=== PATIENT | female | born 2000 | race Two or more races ===

== ENCOUNTER 2025-05-29 10:00 | Observation (INO) | payer MEDICAID ==
[2025-05-29] MEDS ORDERED: PREN-96 PO (11:19)
--- NOTE | 2025-05-29 12:11 | DVHDS2 ---
Physician Discharge Progress N Final Diagnosis: gdm 32wks Operations or Procedures: Operations or Procedures nst reactive reviwed,sono Condition on Discharge: Good Disposition: Home Discharge Instructions: Diet: Consistent carbohydrate Activity: No Restrictions, As Tolerated Follow Up/Referral: as scheduled. Medications: na Follow Up Care: Specialist: 1w Discharge Statement: "Patient was advised to return to the ER or call 911 if any headaches, dizziness, shortness of breath, chest pain, abdominal pain, bleeding, fevers, or worsening of medical condition. Patient was counseled about treatment plan, medications, possible side effects, patientverbalized understanding. All questions were answered to the best of my ability. This discharge took greater then 30 minutes in planning, reviewing documentation, counseling the patient, and discussing with other team members." Visit Coding OBGYN Date of Service: May 29, 2025 Billing Provider: HORACE ELIAS DO [facility] SOLUTION ARCHITECT Common Visit Codes: 49751-CBESVPC OBS CARE (HIGH) [facility]DC SOLUTION ARCHITECT Procedure Codes: 32661-65- NON-STRESS TEST HORACE ELIAS DO May 29, 2025 12:11
--- NOTE | 2025-05-29 12:44 | DVH ---
BIOPHYSICAL PROFILE HISTORY: GDMA1 TECHNIQUE: Multiple real-time grayscale sonographic images through the gravid uterus of the fetus wi th duplex Doppler color flow. FINDINGS: BIOPHYSICAL PROFILE: breathing score: 2 movement score: 2 tone score: 2 Quantitative CLARIBEL score: 2 Total score: 8 out of 8 Single live intrauterine , heart rate of 132 beats per minute. Cephalic lie. Placenta is posteriorly/ fundally positioned. CLARIBEL 18.1 cm. IMPRESSION: Biophysical profile score: 8 out of 8
== END 2025-05-29 12:05 | disposition home or self-care (01) ==
LOC: UNDOADMOB 10:00 → LDRP 10:00 → EDBD 10:00 → LDRP 10:44
PROVIDERS: ADMIT Obstetrics & Gynecology; ATTEND Obstetrics & Gynecology
DX: O24.419 Gestational diabetes mellitus in pregnancy, unspecified control (principal); Z3A.32 32 weeks gestation of pregnancy; Z79.899 Other long term (current) drug therapy
CPT/HCPCS: 59025; 76819; 81002; 82948; 82962; 94760; G0378

== ENCOUNTER 2025-06-04 08:19 | Observation (INO) | payer MEDICAID ==
[~2025-06-04 08:19] MED LIST: PREN-96 PO
--- NOTE | 2025-06-12 16:48 | DVH ---
BIOPHYSICAL PROFILE HISTORY: GDMA1 TECHNIQUE: Multiple transabdominal real-time grayscale sonographic images through the gravid uterus of the fetus with duplex Doppler color flow and M-mode spectral analysis FINDINGS: BIOPHYSICAL PROFILE: breathing score: 2/2 movement score: 2 of 2 tone score: 2 of 2 Quantitative CLARIBEL score: 2 of 2 (CLARIBEL: 17 Cm.) Total score: 8 of 8 The cervix close Single live fetus in cephalic presentation. heart rate 143 beats per minute. Posterior placenta without previa or abruption IMPRESSION: 1. Biophysical profile score: 8 of 8
--- NOTE | 2025-06-13 13:47 | DVHDS2 ---
Physician Discharge Progress N Final Diagnosis: iup at 38wks gdm Operations or Procedures: Operations or Procedures nst reactive reviwed,sono Condition on Discharge: Good Disposition: Home Discharge Instructions: Diet: Consistent carbohydrate Activity: No Restrictions, As Tolerated Medications: na Follow Up Care: Specialist: 3d Discharge Statement: "Patient was advised to return to the ER or call 911 if any headaches, dizziness, shortness of breath, chest pain, abdominal pain, bleeding, fevers, or worsening of medical condition. Patient was counseled about treatment plan, medications, possible side effects, patientverbalized understanding. All questions were answered to the best of my ability. This discharge took greater then 30 minutes in planning, reviewing documentation, counseling the patient, and discussing with other team members." Visit Coding OBGYN Date of Service: Jun 12, 2025 Billing Provider: HORACE ELIAS DO ION EXCHANGE OPERATOR Common Visit Codes: [id number] OBS CARE (HIGH) ION EXCHANGE OPERATOR Procedure Codes: 09880-31- NON-STRESS TEST HORACE ELIAS DO Jun 13, 2025 13:47
== END 2025-06-12 17:15 | disposition home or self-care (01) ==
LOC: UNDOADMOB 06-12 15:48 → LDRP 06-12 15:48 → UNDODISOB 06-12 17:15
PROVIDERS: ADMIT Obstetrics & Gynecology; ATTEND Obstetrics & Gynecology
DX: O24.419 Gestational diabetes mellitus in pregnancy, unspecified control (principal); Z98.890 Other specified postprocedural states; Z79.899 Other long term (current) drug therapy; Z3A.38 38 weeks gestation of pregnancy
CPT/HCPCS: 59025; 76819; 81002; 82948; 82962; G0378

== ENCOUNTER 2025-06-19 16:05 | Observation (INO) | payer MEDICAID ==
--- NOTE | 2025-06-19 16:47 | DVH ---
BIOPHYSICAL PROFILE HISTORY: GDMA1 TECHNIQUE: Multiple real-time grayscale sonographic images through the gravid uterus of the fetus wi th duplex Doppler color flow. FINDINGS: BIOPHYSICAL PROFILE: breathing score: 2 movement score: 2 tone score: 2 Quantitative CLARIBEL score: 2 Total score: 8 out of 8 Single live intrauterine . heart rate 138 beats per minute. Cephalic lie. Placenta posteriorly positioned. CLARIBEL 16.6 cm. IMPRESSION: Biophysical profile score: 8 out of 8
--- NOTE | 2025-06-19 17:04 | DVHDS2 ---
Physician Discharge Progress N Final Diagnosis: GDM,PREVIOUS CSX2 Operations or Procedures: Operations or Procedures NST REACTIVE REVIWED,SONO Condition on Discharge: Good Disposition: Eloped Discharge Instructions: Diet: Consistent carbohydrate Activity: No Restrictions, As Tolerated Medications: NA Follow Up Care: Specialist: 4D Discharge Statement: "Patient was advised to return to the ER or call 911 if any headaches, dizziness, shortness of breath, chest pain, abdominal pain, bleeding, fevers, or worsening of medical condition. Patient was counseled about treatment plan, medications, possible side effects, patientverbalized understanding. All questions were answered to the best of my ability. This discharge took greater then 30 minutes in planning, reviewing documentation, counseling the patient, and discussing with other team members." Visit Coding OBGYN Date of Service: Jun 19, 2025 Billing Provider: HORACE ELIAS DO PURCHASING ASSISTANT Common Visit Codes: 42698-BIQHDEV OBS CARE (HIGH) PURCHASING ASSISTANT Procedure Codes: 24994-77- NON-STRESS TEST HORACE ELIAS DO Jun 19, 2025 17:04
== END 2025-06-19 17:17 | disposition home or self-care (01) ==
LOC: LDRP 16:05
PROVIDERS: ADMIT Obstetrics & Gynecology; ATTEND Obstetrics & Gynecology
DX: O24.419 Gestational diabetes mellitus in pregnancy, unspecified control (principal); Z3A.36 36 weeks gestation of pregnancy; Z98.890 Other specified postprocedural states; Z79.899 Other long term (current) drug therapy
CPT/HCPCS: 59025; 76819; 81002; 82948; 82962; 94760; G0378

== ENCOUNTER 2025-06-26 16:05 | Observation (INO) | payer MEDICAID ==
--- NOTE | 2025-06-26 16:52 | DVH ---
BIOPHYSICAL PROFILE HISTORY: GDMA1 TECHNIQUE: Multiple real-time grayscale sonographic images through the gravid uterus of the fetus wi th duplex Doppler color flow. FINDINGS: BIOPHYSICAL PROFILE: breathing score: 2 movement score: 2 tone score: 2 Quantitative CLARIBEL score: 2 Total score: 8 out of 8 The cervix 4.55 Single live intrauterine . heart rate 132 beats per minute. Cephalic lie. Placenta posteriorly positioned. CLARIBEL 15.4 cm. IMPRESSION: Biophysical profile score: 8 out of 8
--- NOTE | 2025-06-27 14:33 | DVHDS2 ---
Physician Discharge Progress N Final Diagnosis: gdm 37wks Operations or Procedures: Operations or Procedures nst reactive reviwed,sono Condition on Discharge: Good Disposition: Home Discharge Instructions: Diet: Consistent carbohydrate Activity: No Restrictions, As Tolerated Medications: na Follow Up Care: Specialist: 3d Discharge Statement: "Patient was advised to return to the ER or call 911 if any headaches, dizziness, shortness of breath, chest pain, abdominal pain, bleeding, fevers, or worsening of medical condition. Patient was counseled about treatment plan, medications, possible side effects, patientverbalized understanding. All questions were answered to the best of my ability. This discharge took greater then 30 minutes in planning, reviewing documentation, counseling the patient, and discussing with other team members." Visit Coding OBGYN Date of Service: Jun 26, 2025 Billing Provider: HORACE ELIAS DO PHLEBOTOMY SUPPORT TECH Common Visit Codes: [id number] OBS CARE (HIGH) PHLEBOTOMY SUPPORT TECH Procedure Codes: 60075-50- NON-STRESS TEST HORACE ELIAS DO Jun 27, 2025 14:33
== END 2025-06-26 17:18 | disposition home or self-care (01) ==
LOC: LDRP 16:05 → UNDOADMOB 16:05 → LDRP 16:11
PROVIDERS: ADMIT Obstetrics & Gynecology; ATTEND Obstetrics & Gynecology
DX: O24.419 Gestational diabetes mellitus in pregnancy, unspecified control (principal); Z3A.37 37 weeks gestation of pregnancy; Z98.890 Other specified postprocedural states
CPT/HCPCS: 59025; 76819; 81002; 82948; 82962; 94760; G0378

== ENCOUNTER 2025-07-03 06:40 | Observation (INO) | payer MEDICAID ==
--- NOTE | 2025-07-03 16:48 | DVH ---
EXAM: US BIOPHYSICAL PROFILE HISTORY: GDMA1 COMPARISON: US BIOPHYSICAL PROFILE on DOS: 06/26/25, US BIOPHYSICAL PROFILE on DOS: 06/19/25, US BIOPHY SICAL PROFILE on DOS: 06/12/25 TECHNIQUE: Multiple transabdominal real-time grayscale sonographic images through the gravid uterus of the fetus with duplex Doppler color flow and M-mode spectral analysis Findings/Impression: Single live intrauterine in vertex presentation with heart rate of 141 bpm. Biophysical profile was performed with 2 points for respirations, 2 points for movement, 2 points for tone and 2 points for amniotic fluid index. Biophysical profile score of 8/8. Amniotic fluid is within normal limits with CLARIBEL 11.2 cm and MVP 4.3 cm. Normal CLARIBEL (5-25 cm) Normal MVP (2-8 cm)
== END 2025-07-03 17:08 | disposition home or self-care (01) ==
LOC: LDRP 16:02 → UNDOADMOB 16:02 → LDRP 16:08 → UNDODISOB 17:08
PROVIDERS: ADMIT Obstetrics & Gynecology; ATTEND Obstetrics & Gynecology
DX: O24.419 Gestational diabetes mellitus in pregnancy, unspecified control (principal); Z3A.38 38 weeks gestation of pregnancy; Z79.899 Other long term (current) drug therapy; Z98.890 Other specified postprocedural states
CPT/HCPCS: 59025; 76819; 81002; 82948; 82962; 94760; G0378

== ENCOUNTER 2025-07-07 06:28 | Observation (INO) | payer MEDICAID ==
--- NOTE | 2025-07-07 14:06 | DVH ---
BIOPHYSICAL PROFILE HISTORY: gdma1 TECHNIQUE: Multiple transabdominal real-time grayscale sonographic images through the gravid uterus o f the fetus with duplex doppler color flow and M-mode spectral analysis FINDINGS: BIOPHYSICAL PROFILE: breathing score: 2 movement score: 2 tone score: 2 Quantitative CLARIBEL score: 2 (CLARIBEL: 10.1 cm.) Total score: 8/8 Single live fetus in cephalic presentation. heart rate 141 beats per minute. Posterior placenta without previa or abruption Biophysical profile score 8/8 corresponding to an RUPAL of 07/16/25 IMPRESSION: Biophysical profile score: 8/8 Possible nuchal cord seen.
--- NOTE | 2025-07-07 17:43 | DVHDS2 ---
Discharge Summary Date of Admission Jul 07, 2025 at 13:03 Date of Discharge: Jul 07, 2025 Labs/Diagnostic Data: Laboratory Results Test 07/07/25 14:22 POC Glucose 82 mg/dl (70-106) Brief Hx & Hospital Course: Patient having routine monitoring with NST BPP Consults/Reason for consult None Condition at Discharge: Good Final Diagnosis/Problems List Thirty weeks GDM A1 reassuring heart tones and ultrasound. Discharge Disposition: Home Discharge Instruct/Medications Diet: Regular Activity: No Restrictions, As Tolerated Activity comment: Kick counts labor precautions Follow Up/Referral: As scheduled Medications: Resume home med Scheduled Vit W/ Ferrous Fumara ( One Daily), 1 TAB PO DAILY, (Reported) Discharge Statement: "Patient was advised to return to the ER or call 911 if any headaches, dizziness, shortness of breath, chest pain, abdominal pain, bleeding, fevers, or worsening of medical condition. Patient was counseled about treatment plan, medications, possible side effects, patientverbalized understanding. All questions were answered to the best of my ability. This discharge took greater then 30 minutes in planning, reviewing documentation, counseling the patient, and discussing with other team members." ASSESSMENT ASSESSMENT Hospital Course nst normal reactive, US reassuring Assessment Thirty-eight weeks GDM A1 reassuring Visit Coding OBGYN Date of Service: Jul 07, 2025 Billing Provider: JEAN JACOBSON DO SHOP TECH Common Visit Codes: [id number] INP/OBS CARE(MOD), 55801-[id number] INP/OBS CARE(HIGH), 67267-EEF/OBS SAME DATE (LOW) SHOP TECH Procedure Codes: 57398-70- NON-STRESS TEST JEAN JACOBSON DO Jul 07, 2025 17:43
== END 2025-07-07 14:49 | disposition home or self-care (01) ==
LOC: LDRP 13:03
PROVIDERS: ADMIT Obstetrics & Gynecology; ATTEND Obstetrics & Gynecology
DX: O24.419 Gestational diabetes mellitus in pregnancy, unspecified control (principal); Z3A.38 38 weeks gestation of pregnancy; Z98.890 Other specified postprocedural states
CPT/HCPCS: 59025; 76819; 81002; 82948; 82962; 94760; G0378

== ENCOUNTER 2025-07-07 13:10 | Inpatient (IN) | payer MEDICAID ==
[~2025-07-07] VITALS: Ht 152.4 cm; Wt 91.6 kg
[2025-07-07 15:01] LABS: Hematocrit 44.4 % (36.0-46.0); Hemoglobin 15.8 g/dL (12.2-16.2); Mean Corpuscular Hemoglobin 33.9 pg (28.0-32.0); Mean Corpuscular Volume 94.9 fL (80.0-100.0); Nucleated Red Blood Cells % 0.1 %
[2025-07-07 15:16] LABS: Urine Budding Yeast OCCASIONAL /hpf (None Seen); Urine Protein, UAD Negative (Negative)
[2025-07-07 15:16] LABS: INR 0.91 (0.9-1.15); Partial Thromboplastin Time 29.5 SEC (24.5-34.5); Prothrombin Time 9.7 sec (9.3-11.8)
[2025-07-07 15:18] LABS: Alanine Aminotransferase 25 U/L (7-40); Albumin 3.4 g/dL (3.2-4.8); Alkaline Phosphatase 169 U/L (46-116); Anion Gap 11 (5-15); BUN/Creatinine Ratio 12.2 (10.0-20.0); Bilirubin, Total 0.9 mg/dL (0.2-1.0); Blood Urea Nitrogen 5 mg/dL (9-23); Calcium 8.7 mg/dL (8.7-10.4); Carbon Dioxide 21 mmol/L (20-31); Chloride 107 mmol/L (98-107); Glucose 78 mg/dL (74-106); Potassium 3.5 mmol/L (3.5-5.1); Sodium 139 mmol/L (136-145); Total Protein 6.4 g/dL (5.7-8.2)
[2025-07-07 15:30] LABS: Amphetamine Screen, Urine Neg (NEGATIVE); Barbiturate Scree,Urine Neg (NEGATIVE); Benzodiazephine Screen, Urine Neg (NEGATIVE); Cannabinoid Screen, Urine Neg (NEGATIVE); Cocaine Screen, Urine Neg (NEGATIVE); Opiate Scree,Urine Neg (NEGATIVE); Phencyclidine Screen, Urine Neg (NEGATIVE)
--- NOTE | 2025-07-08 05:50 | DVHHP ---
ADMIT DATE: 07/09/2025 CHIEF COMPLAINT: Desires repeat with bilateral tubal ligation. HISTORY OF PRESENT ILLNESS: The patient is a 3, para 2 female with an EDC of 07/16/2025, estimated gestational age of 39 weeks, admitted for repeat section with bilateral tubal ligation. Risks, complications and failure rate were discussed with the patient. All options were reviewed. The patient wishes to proceed with the planned procedure. PAST MEDICAL HISTORY: None. PAST SURGICAL HISTORY: x 2. SOCIAL HISTORY: None. FAMILY HISTORY: None. OBSTETRIC AND GYNECOLOGIC HISTORY: Two C-sections. REVIEW OF SYSTEMS: Consistent with HPI. PHYSICAL EXAMINATION: VITAL SIGNS: Stable, afebrile. HEENT: Within normal limits. CARDIOVASCULAR: Regular rate and rhythm. LUNGS: Clear to auscultation. BREASTS: Symmetrical. No masses. ABDOMEN: Gravid. Positive heart tones. PELVIC: Thick and high. EXTREMITIES: No clubbing, cyanosis, or edema. IMPRESSION: * Term with previous section x 2. * Desires repeat section. * Desires bilateral tubal ligation. PLAN: Repeat section with bilateral tubal ligation. Informed consent was obtained. Risks and complications of surgery including infection, bleeding, hematoma formation, injury to bowel or bladder, surrounding organ, possibility of DVT and pulmonary embolism, and risks of anesthesia were discussed with the patient. Options were reviewed. All questions were answered. Failure of tubal sterilization was discussed. The patient desires to procced. ____ discussed with the patient. The patient wishes to proceed with the planned procedure. DO JOSE EDUARDO Deluna/SHANEKA TID: [id number] RECEIPT: [id number]
[2025-07-09] VITALS (13 sets, daily range): BP systolic 111–140; BP diastolic 63–83; PULSE 78–104; RESP 16–18; TEMP 97.8–98.8; O2SAT 94–99
[2025-07-09] MEDS: LACTATED RINGER'S 1,000 ML IV ONE (04:45)
[2025-07-09] MEDS ORDERED: HYDR-4072 PO (07:02)
[2025-07-09] MEDS ORDERED: IBUP-1456 PO (07:02)
[2025-07-09] MEDS ORDERED: DOCU-94 PO (07:02)
[2025-07-09] MEDS ORDERED: BUPIVACAINE/DEXTROSE MPF 0.75% 2 ML AMP IT ONE (08:29)
[2025-07-09] MEDS ORDERED: MORPHINE SULF PF 5 MG/10 ML VIAL ONE (08:29)
[2025-07-09] MEDS: LACTATED RINGER'S 1,000 ML IV SCH (08:48)
[2025-07-09] MEDS: ceFAZolin 2 GM/D5W50ml 50 ML IV ONE (08:49)
[2025-07-09] MEDS ORDERED: ceFAZolin 1GM/50ML 50 ML IV SCH (09:30)
[2025-07-09] MEDS ORDERED: ONDANSETRON HCL 4 MG/2 ML VIAL ONE (09:35)
[2025-07-09] MEDS ORDERED: HYDROmorphone HCL 2 MG/ML VL/or syr IV PRN ×2 (10:30)
[2025-07-09] MEDS: NALBUPHINE HCL 10 MG/1ml INJECTION SUBCUT ONE (10:30)
[2025-07-09] MEDS ORDERED: NALOXONE HCL 0.4 MG/ML VIAL IV PRN (10:30)
[2025-07-09] MEDS ORDERED: ACETAMINOPHEN IV 1000 MG/100ML (10MG/ML) IV PRN (10:30)
[2025-07-09] MEDS ORDERED: ONDANSETRON HCL 4 MG/2 ML VIAL IV PRN ×3 (10:30→11:45)
[2025-07-09] MEDS: ONDANSETRON HCL 4 MG/2 ML VIAL IV PRN (10:47)
[2025-07-09] MEDS: LACT. RINGERS/OXYTOCIN 20UNITS 1,000 ML IV ONE (12:16)
[2025-07-09] MEDS: METOCLOPRAMIDE HCL 5MG/ml INJ 2ml VIAL ONE (12:16)
[2025-07-09] MEDS: ACETAMINOPHEN IV 1000 MG/100ML (10MG/ML) IV PRN (12:36)
[2025-07-09] MEDS: diphenhdrAMINE HCL 50 MG/1 ML VL IV PRN (12:46)
--- NOTE | 2025-07-09 16:04 | DVHOP2 ---
Operative Report DATE OF OPERATION: 07/09/25 PREOPERATIVE DIAGNOSES: 1. Term , desires repeat section. 2. Desires bilateral tubal ligation POSTOPERATIVE DIAGNOSES: 1. Term , desires repeat section. 2. Desires bilateral tubal ligation,nuchal cord PROCEDURES: Repeat section with bilateral tubal ligation via Filschie Clips SURGEON: Vita Pardo D.O./cherelle ANESTHESIOLOGIST: TYPE OF ANESTHESIA : spinal ESTIMATED BLOOD LOSS: 800 mL CONSENT: The patient was informed of the risks and benefits of the procedure. These include but are not limited to , complications of anesthesia, postoperative infection, incomplete relief of symptoms, recurrence of symptoms, damage to blood vessels, nerves and tendons, deep venous thrombosis, pulmonary embolism and possible need for repeat surgery in the future. Surgery was opted. FINDINGS: Baby [f] with apgars [8] and [9]. Grossly normal appearing tubes and ovaries. TISSUE TO PATHOLOGY: Placenta. PROCEDURE IN DETAIL: The patient was taken to the operating room where she was placed under spinal anesthesia. She was then prepped and draped in the usual sterile manner in supine position with a leftward tilt. A Pfannenstiel skin incision was then made 2 cm above the symphysis pubis. This incision was carried to the underlying layer of fascia. The fascia was nicked in the midline and the incision was extended laterally. The superior aspect of the fascial incision was grasped and elevated. Underlying rectus muscle was dissected off bluntly. The same procedure was done to the inferior aspect of the fascial incision. The rectus muscles were then in the midline. Peritoneum was identified and entered. Peritoneal incision was extended superiorly and inferiorly with good visualization of the bladder. Bladder blade was inserted. Vesicouterine peritoneum was identified and entered. Lower uterine segment was incised in a transverse fashion. The was delivered from vertex presentation. The infant was baby [f] with Apgars of [8] and [9]. Placenta was then removed manually. Uterus was exteriorized and cleared off all clots and debris. Uterine incision was repaired using 0 Vicryl in a double-layered fashion. No bleeding was noted. Bilateral tubal ligation was then performed using Ajay. Placed in the ampullary region and identifying the fimbria distally. The isthmic portion of the right tube was clipped using Filschie Clip. The same procedure was done on the opposite side. No bleeding was noted. Peritoneum was closed using 0 Vicryl, fascia was closed using 0 Maxon, and skin was closed using siria. Estimated blood loss was noted to be 500 mL. The arnold newberry tolerated the procedure well. She was taken to the recovery room in stable condition. Visit Coding OBGYN Date of Service: Jul 09, 2025 Billing Provider: VITA PARDO DO CARDROOM MANAGER Common Visit Codes: 69387-[id number] OBS CARE (HIGH) CARDROOM MANAGER Procedure Codes: 74352-MNOMQ @ TIME OF , 81210-F-ROKIFIA DELIVERY ONLY VITA PARDO DO Jul 09, 2025 16:03
--- NOTE | 2025-07-09 16:06 | POSTOP ---
Post-Operative Note Post-Operative Note Preop Diagnosis term preg desires rcs w/btl Postop Diagnosis: same,nuchal Operation performed rcs w/btl Specimen baby girl,apgars 8-9,nuchal cord Anesthesia: Regional Anesthesiologist: damari Blood Loss(fluid mgmt) 800ml Surgeon Horace Pardo [place] Technician cherelle Implant clip Complications & Mgmt none Date 07/09/25 Time 16:04 Visit Coding OBGYN Date of Service: Jul 09, 2025 Billing Provider: HORACE PARDO DO SIGN ARTIST Common Visit Codes: 11068-[id number] OBS CARE (HIGH) SIGN ARTIST Procedure Codes: 59069-KUZLS @ TIME OF , 65136-P-UDARZRO DELIVERY ONLY HORACE PARDO DO Jul 09, 2025 16:06
[2025-07-09] MEDS: KETOROLAC TROMETH 30 MG/ML 1ML VIAL IV PRN (16:50)
[2025-07-09] MEDS: ceFAZolin 1GM/50ML 50 ML IV SCH (17:29)
[2025-07-09 22:36] LABS: Hemoglobin 13.9 g/dL (12.2-16.2); Nucleated Red Blood Cells % 0.0 %
[2025-07-09 22:38] LABS: Hematocrit 39.2 % (36.0-46.0); Mean Corpuscular Hemoglobin 33.9 pg (28.0-32.0); Mean Corpuscular Volume 95.7 fL (80.0-100.0)
[2025-07-10] VITALS (14 sets, daily range): BP systolic 103–119; BP diastolic 59–76; PULSE 80–100; RESP 16–19; TEMP 98.1–99.7; O2SAT 92–98
[2025-07-10 07:41] LABS: Hematocrit 39.2 % (36.0-46.0); Hemoglobin 14.0 g/dL (12.2-16.2); Mean Corpuscular Hemoglobin 33.9 pg (28.0-32.0); Mean Corpuscular Volume 95.3 fL (80.0-100.0); Nucleated Red Blood Cells % 0.0 %
[2025-07-10] MEDS ORDERED: HYDROcodone-ACET 5/325MG TAB PO PRN (09:15)
[2025-07-10] MEDS: HYDROcodone-ACET 5/325MG TAB PO PRN (09:46)
[2025-07-10] MEDS: DOCUSATE SOD 100 MG CAP PO SCH (10:33)
[2025-07-10] MEDS: SIMETHICONE 80 MG CHEWABLE TABLET PO SCH (11:56)
[2025-07-10] MEDS: IBUPROFEN 800 MG TAB PO PRN (18:27)
--- NOTE | 2025-07-11 02:58 | DVHPN2 ---
Progress Note Date Seen: Jul 11, 2025 Subjective *Zookeeper Harvey #[id number] used for this encounter* Patient awake and chatting with her upon entry to room. SUBJECTIVE -Lochia minimal -Regular diet well tolerated. -Ambulating and voiding well w/o feeling dizzy or lightheaded -Pain relieved with oral medication PRN -Passing flatus but no BM yet. -Combination feeding w/o problem -Desires and requests to be discharged home today (07/11) vital signs Vital Sign Date Time Temp Pulse Resp B/P (MAP) Pulse Ox O2 Delivery O2 Flow Rate FiO2 07/10/25 22:40 80 18 116/74 (88) 98 07/10/25 18:30 Room Air 07/10/25 14:51 98.1 98.1 07/09/25 10:19 0 98 Total Intake and Output 07/10/25 07/10/25 07/11/25 15:00 23:00 07:00 Output Total 425 ml 1050 ml Balance -425 ml -1050 ml medications Current Medications Medications Dose Ordered Sig/Ca Route Start Time Stop Time Status Last Admin Dose Admin Ondansetron HCl 4 mg Q4HP PRN IV 07/09/25 09:30 07/09/25 10:47 4 MG Diphenhydramine HCl 25 mg Q4HP PRN IV 07/09/25 10:30 07/10/25 02:43 25 MG Dimethicone 80 mg QID PO 07/10/25 12:00 07/10/25 22:05 80 MG Ibuprofen 800 mg Q8HP PRN PO 07/10/25 09:15 07/10/25 18:27 800 MG Acetaminophen/ Hydrocodone Bitart 1 tab Q4HPRN PRN PO 07/10/25 09:15 Acetaminophen/ Hydrocodone Bitart 2 tab Q4HPRN PRN PO 07/10/25 09:15 07/10/25 23:01 2 TAB Docusate Sodium 100 mg BID PO 07/10/25 10:00 07/10/25 22:05 100 MG laboratory and microbiology Laboratory Tests 07/10/25 07:13 07/07/25 14:42 Test 07/07/25 14:42 Range/Units Serum Glucose 78 74-106 mg/dL Objective OBJECTIVE -A&O x4. No apparent distress. Affect appropriate -Afebrile, VSS -Chest: heart and lung sounds normal. -Breasts: Nipples intact w/o cracks or soreness -Abdomen: normal BS, soft, non-tender, no rebound or guarding, fundus firm @ U- 1, -Lower abdominal incision site with dressing dry and intact. No edema, erythema or induration -Extremities: no edema or tenderness Problems(with codes): (1) Status post delivery Assessment/Plan ASSESSMENT 24 yo now Post operative & ppd # 2 s/p repeat Section and bilateral tubal ligation, doing well. Blood Type: O+ Combo feeding Rubella Immune PLAN -Continue pain management with oral medications as previously ordered -Increase fluid intake and fiber in diet to promote regular bowel movements, Laxative PRN -Educated patient on self-care and warning signs to watch for, including PPH, PPD, infection, and pre-eclampsia -Continue routine care and anticipate discharge today Plan discussed with: Patient, Spouse Plan discussed with: Patient, Spouse Visit Coding OBGYN Date of Service: Jul 11, 2025 Billing Provider: MARCUS BRIGHT CNM TOBACCO PREVENTION HEALTH EDUCATOR Common Visit Codes: [id number] INP/OBS CARE(HIGH) MARCUS BRIGHT CNM Jul 11, 2025 02:58
--- NOTE | 2025-07-11 03:00 | DVHDS2 ---
Obstetrics Discharge Summary Obstetrics Discharge Summary Date of Admission: Jul 09, 2025 Date of Discharge: Jul 11, 2025 Reason For Admission: Section (Repeat) Procedures: Tubal Ligation (bilateral) Discharge Diagnosis: Term -Delivered Discharge Information: Activity (Unrestricted. Advance as tolerated. Balance activities with rest periods. No heavy lifting, pushing or straining. Pelvic rest x 6 weeks), Diet (Routine regular diet rich in fiber, protein, iron and vitamin C with adequate fluid intake.), Medications (See medication list), Discharge to (Home), Discarge date (07/11/25) Discharge Care Plan Instructions *Sinter Press Operator Harvey #[id number] used for this encounter* - self care instructions given - emergency signs and symptoms including but not limited to pre-eclampsia precautions and signs of infection, PPH & of PPD reviewed with patient. -Follow up with OB Provider in 1 week for incision check Visit Coding OBGYN Date of Service: Jul 11, 2025 Billing Provider: MARCUS BRIGHT CNM KILN REPAIRER Common Visit Codes: 98290-KPC/OBS DISCH DAY >30MIN MARCUS BRIGHT CNM Jul 11, 2025 03:00
[2025-07-11 03:10] VITALS: BP 107/62; PULSE 80; RESP 16; TEMP 98.9; O2SAT 98
[2025-07-11 06:45] VITALS: BP 108/60; PULSE 67; RESP 16; TEMP 98.8; O2SAT 98
[2025-07-11 10:40] VITALS: BP 114/69; PULSE 64; RESP 16; TEMP 98.2; O2SAT 97
[2025-07-11 15:00] VITALS: BP 124/72; PULSE 64; RESP 16; TEMP 98.4; O2SAT 99
[2025-07-11] MEDS: TETANUS-DIPTH-ACEL PERTUSSIS 0.5ML SYR Tdap IM ONE (15:32)
--- NOTE | 2025-07-22 12:39 | DVHPN2 ---
Chief Complaints Patient reports: No new complaints Nursing reports: No new complaints Objective Lungs: Normal Cardiovascular: Normal Abdominal: Soft Extremities: Normal Studies Laboratory Tests 07/10/25 07:13 07/07/25 14:42 Test 07/07/25 14:42 Range/Units Serum Glucose 78 74-106 mg/dL Ass/Plan Assessment s/p rcs Plan supportive care Visit Coding OBGYN Date of Service: Jul 10, 2025 Billing Provider: HORACE ELIAS DO CASTING MACHINE SERVICE OPERATOR Common Visit Codes: [id number] INP/OBS CARE(HIGH) CASTING MACHINE SERVICE OPERATOR Procedure Codes: 31702-J-[id number] DELIVERY ONLY HORACE ELIAS DO Jul 22, 2025 12:39
== END 2025-07-11 16:10 | disposition home or self-care (01) | DRG 539 ==
LOC: LDRP 07-09 04:24
PROVIDERS: ADMIT Obstetrics & Gynecology; ATTEND Obstetrics & Gynecology
PROC: 10D00Z1 Extraction of Products of Conception, Low, Open Approach (ICD-10-PCS; 2025-07-09)
PROC: 0UB70ZZ Excision of Bilateral Fallopian Tubes, Open Approach (ICD-10-PCS; principal; 2025-07-09 09:20)
DX: O34.211 Maternal care for low transverse scar from previous cesarean delivery (principal); R71.0 Precipitous drop in hematocrit; O69.81X0 Labor and delivery complicated by cord around neck, without compression, not applicable or unspecified; Z30.2 Encounter for sterilization; Z3A.39 39 weeks gestation of pregnancy; Z37.0 Single live birth
CPT/HCPCS: 36415; 80053; 80307; 81001; 82948; 82962; 85025; 85610; 85730; 86780; 86850; 86900; 86901; 90715; 94760; 94762; 96360; 96361; 96365; 96366; 96374; G0378; J0131; J1885; J2405; J2590